=== PATIENT | male | born 1975 | race Caucasian/White ===

== ENCOUNTER 2017-07-13 16:18 | Emergency (ER) | payer OTHER ==
[~2017-07-13] VITALS: Ht 193 cm; Wt 81.6 kg
[~2017-07-13 16:18] MED LIST: DOXYCYCLINE PO
== END 2017-07-13 20:45 | disposition home or self-care (01) ==
LOC: CED 16:18 → CFTX 16:41 → CED 16:41 → CFTX 20:45
DX: S71.111A Laceration without foreign body, right thigh, initial encounter (principal); F17.210 Nicotine dependence, cigarettes, uncomplicated; W45.8XXA Other foreign body or object entering through skin, initial encounter
CPT/HCPCS: 12004; 99283